=== PATIENT | female | born 1970 | race Caucasian/White ===

== ENCOUNTER 2019-01-03 07:42 | Day surgery (SDC) | payer BC ==
[~2019-01-03 07:42] MED LIST: Clindamycin Phosphate in D5W 600 MG in Premix Bag 50 BAG IV ONE; Lactated Ringers 1,000 ML IV SCH; Sodium Chloride 0.9% 10 ML Syringe FLUSH PRN; Sodium Chloride 0.9% 2.5 ML Syringe FLUSH PRN
[2019-01-03] MEDS ORDERED: Midazolam 1 MG/ML 2 ML SDV ONE (08:30)
[2019-01-03] MEDS ORDERED: fentaNYL 250 MCG/5 ML SDV ONE (08:30)
[2019-01-03] MEDS ORDERED: Propofol 200 MG/20 ML SDV ONE ×2 (08:30→10:38)
[2019-01-03] MEDS ORDERED: Scopolamine 1.5 MG Transdermal Patch TRDERM PRN (08:38)
[2019-01-03] MEDS ORDERED: fentaNYL 100 MCG/2 ML SDV IVPUSH PRN ×2 (08:39→10:31)
--- NOTE | 2019-01-03 08:41 | PCM.PREANE ---
Preanesthetic Assessment - Anesthesia/Transfusion/Family Hx Anesthesia History: Prior Anesthesia Without Reaction Family History of Anesthesia Reaction: No Transfusion History: No Prior Transfusion(s) - Review of Systems General: No Symptoms Pulmonary: No Symptoms Cardiovascular: No Symptoms Gastrointestinal: No Symptoms Neurological: Headache Other: Reports: None - Physical Assessment NPO Status Date: 12/19/18 Height: 5 ft 6 in Weight: 76.657 kg ASA Class: 2 Mental Status: Alert & Oriented x3 Airway Class: Mallampati = 2 Dentition: Reports: Normal Dentition ROM/Head Extension: Full Lungs: Clear to Auscultation, Normal Respiratory Effort Cardiovascular: Regular Rate, Regular Rhythm - Lab Values: Laboratory Last Values Urine HCG, Qual NEGATIVE (NEGATIVE) 01/03/19 08:12 - Allergies Allergies/Adverse Reactions: Allergies Allergy/AdvReac Type Severity Reaction Status Date / Time amoxicillin Allergy Hives Verified 01/01/19 08:44 Sulfa (Sulfonamide Allergy Hives Verified 01/01/19 08:44 Antibiotics) - Anesthesia Plan Pre-Op Medication Ordered: Other (fentanyl for headache, and scop patch for PONV prophylaxis) - Acknowledgements Anesthesia Type Planned: General Anesthesia Pt an Appropriate Candidate for the Planned Anesthesia: Yes Alternatives and Risks of Anesthesia Discussed w Pt/Guardian: Yes Pt/Guardian Understands and Agrees with Anesthesia Plan: Yes PreAnesthesia Questionnaire HEENT History: Reports: Other (See Below) Other HEENT History: wears glasses/contacts Gastrointestinal History: Reports: None - Past Surgical History Head Surgeries/Procedures: Reports: None GI Surgical History: Reports: Bariatric Procedure Other GI Surgeries/Procedures: lap band surgery in 2006 - SUBSTANCE USE Smoking Status *Q: Current Every Day Smoker Tobacco Use Within Last Twelve Months: Cigarettes Recreational Drug Use History: No - HOME MEDS Home Medications: Home Meds Acetaminophen with Codeine [Tylenol with Codeine #3 Tablet] 1 tab PO ASDIRECTED PRN 01/01/19 [History] Levomilnacipran Hydrochloride [Fetzima] 40 mg PO DAILY 01/01/19 [History] Multivitamin [Multivitamins] 1 tab PO DAILY 01/01/19 [History] - CURRENT (IN HOUSE) MEDS Current Meds: Current Medications Fentanyl (Sublimaze) 50 mcg IVPUSH Q5M PRN PRN Reason: Pain Lactated Ringer's (Ringers, Lactated) 1,000 mls @ 125 mls/hr IV ASDIRECTED FILI Scopolamine (Transderm-Scop) 1.5 mg TRDERM Q72H PRN PRN Reason: Nausea/Vomiting Sodium Chloride (Saline Flush) 10 ml FLUSH ASDIRECTED PRN PRN Reason: Keep Vein Open Sodium Chloride (Saline Flush) 2.5 ml FLUSH ASDIRECTED PRN PRN Reason: Keep Vein Open Discontinued Medications Fentanyl (Sublimaze) Confirm Administered Dose 250 mcg .ROUTE .STK-MED ONE Stop: 01/03/19 08:31 Clindamycin Phosphate 600 mg/ (Premix) 50 mls @ 100 mls/hr IV ONETIME ONE Stop: 01/02/19 11:10 Midazolam HCl (Versed 1 Mg/Ml) Confirm Administered Dose 2 mg .ROUTE .STK-MED ONE Stop: 01/03/19 08:31 Propofol (Diprivan 20 Ml) Confirm Administered Dose 200 mg .ROUTE .STK-MED ONE Stop: 01/03/19 08:31
[2019-01-03] MEDS ORDERED: Bupivacaine 0.5% 30 ML SDV ONE (09:18)
[2019-01-03] MEDS ORDERED: Clindamycin Phosphate in D5W 50 ML ONE (09:26)
--- NOTE | 2019-01-03 09:31 | PCM.POSTAN ---
POST ANESTHESIA ASSESSMENT - MENTAL STATUS Mental Status: Alert, Oriented - RESPIRATORY Respiratory Status: Respiratory Rate WNL, Airway Patent, O2 Saturation Stable - CARDIOVASCULAR CV Status: Pulse Rate WNL, Blood Pressure Stable - GASTROINTESTINAL GI Status: No Symptoms - POST OP HYDRATION Hydration Status: Adequate & Stable
[2019-01-03] MEDS ORDERED: Phenylephrine/Normal Saline 100 MCG/ML 10 ML Syringe ONE (10:27)
[2019-01-03] MEDS ORDERED: Neostigmine Methylsulfate 1 MG/ML 5 ML Syringe ONE (10:27)
[2019-01-03] MEDS ORDERED: Glycopyrrolate 0.2 MG/ML SDV ONE (10:27)
[2019-01-03] MEDS ORDERED: ePHEDrine 50 MG/ML SDV ONE (10:27)
[2019-01-03] MEDS ORDERED: HYDROmorphone 2 MG/ML Syringe IVPUSH ONE (10:31)
--- NOTE | 2019-01-03 10:48 | PCM.OPNOTE ---
- General Post-Op/Procedure Note Date of Surgery/Procedure: 01/03/19 Operative Procedure(s): Laparoscopic cholecystectomy Findings: Normal appearing gallbladder Pre Op Diagnosis: Biliary dyskinesia Post-Op Diagnosis: same Anesthesia Technique: General ET Tube Primary Surgeon: Mabel Andrew Fluid Replacement, Intraop: 1,200 Output, Urine Amount: 100 EBL in mLs: 5 Condition: Good
--- NOTE | 2019-01-03 11:01 | PCM.POSTAN ---
POST ANESTHESIA ASSESSMENT - MENTAL STATUS Mental Status: Alert, Oriented - RESPIRATORY Respiratory Status: Respiratory Rate WNL, Airway Patent, O2 Saturation Stable - CARDIOVASCULAR CV Status: Pulse Rate WNL, Blood Pressure Stable - GASTROINTESTINAL GI Status: No Symptoms - PAIN Pain Score: 0 - POST OP HYDRATION Hydration Status: Adequate & Stable - OBSERVATIONS Free Text/Narrative:: Pt denies any pain or nausea at this time. No apparent anesthesia complications. VSS. Stable for tx to phase II recovery.
[2019-01-03] MEDS ORDERED: Acetaminophen/oxyCODONE 325-5 MG Tab PO PRN (11:45)
--- NOTE | 2019-01-03 12:46 | PCM48HPAN ---
Post Anesthesia Note - EVALUATION WITHIN 48HRS OF ANESTHETIC Vital Signs in Normal Range: Yes Patient Participated in Evaluation: Yes Respiratory Function Stable: Yes Airway Patent: Yes Cardiovascular Function Stable: Yes Hydration Status Stable: Yes Pain Control Satisfactory: Yes Nausea and Vomiting Control Satisfactory: Yes Mental Status Recovered: Yes Resp Rate: 14
--- NOTE | 2019-01-03 13:48 | OR ---
SURGEON: LINDA HINOJOSA MD DATE OF PROCEDURE: 01/03/2019 PREOPERATIVE DIAGNOSIS: Biliary dyskinesia. POSTOPERATIVE DIAGNOSIS: Biliary dyskinesia. PROCEDURE PERFORMED: Laparoscopic cholecystectomy. ANESTHESIA: General endotracheal anesthesia. FLUIDS: 1200 mL of crystalloid. ESTIMATED BLOOD LOSS: 5 mL. URINE OUTPUT: 100 mL. FINDINGS: Normal-appearing gallbladder. COMPLICATIONS: None. INDICATIONS: The patient is a 48-year-old female who presents with right upper quadrant abdominal pain. A HIDA scan showed an ejection fraction of 5% indicating biliary dyskinesia. I explained the Pathophysiology of biliary disease. I explained that the treatment for biliary dyskinesia is removal of the gallbladder. I will attempt it laparoscopically, but should I be unable to perform it safely, I will convert it to open. The patient and I discussed the expected perioperative course as well as the risks including bleeding, infection, or damage to surrounding structures. The patient verbalized understanding and wishes to proceed. PROCEDURE IN DETAIL: The patient was brought into the OR and placed on the OR table in supine position. A time-out was completed verifying the patient's name, age, date of , allergies, and procedure to be performed. General endotracheal anesthesia was induced. The left arm was tucked at the patient's side and a Cornejo catheter was placed. The abdomen was prepped and draped in usual standard fashion. I anesthetized the area underneath the patient's umbilicus with 0.5% Marcaine plain. A small infraumbilical midline incision was made using an 11 blade. Cautery was used to dissect down the level of subcutaneous fat. I bluntly dissected down to the level of fascia using S retractors. I then elevated the fascia with Karlos's and incised it sharply with the Bueno scissors. I identified the peritoneum and entered this bluntly with a small hemostat. Entry into the abdomen was palpated. A 12 mm Osmel trocar was inserted. The abdomen was insufflated and I inserted a 5 mm 30-degree scope into the abdomen and inspected the area underneath my initial trocar placement. No damage to surrounding structures was noted. The patient was placed into reverse Trendelenburg position and airplaned slightly to the left. I immediately noticed the patient's laparoscopic band and the tubing going to the subcutaneous port. The tubing was laying along the left side of the abdomen and was well out of my way. A photograph of the lap band was taken. I then turned my attention to the right upper quadrant. 5 mm trocars were placed under direct visualization in the following locations, one in the epigastric area, one in the right flank, and one 2 fingerbreadths below the right subcostal margin in the midclavicular line. The dome of the gallbladder was grasped and elevated cranially. This exposed the infundibulum. There were no signs of inflammation, and there were no intraabdominal adhesions. Using a combination of hook cautery and gentle blunt dissection, I was able to clear away the peritoneal attachments around the cystic duct and artery. Once I had obtained my critical view, I doubly clipped and ligated the cystic duct and artery. Electrocautery was used to take down the attachments of the gallbladder from the remainder of the cystic plate. Once this was done, the gallbladder was placed in an EndoCatch bag and removed through the infraumbilical port site. The 12 mm Osmel trocar was placed back in the abdomen and I inspected my operative field. The clips were in good position. There was no evidence of bile leakage. The field was hemostatic. The 5 mm trocars were removed under direct visualization and the abdomen allowed to desufflate. The 12-mm Osmel trocar was removed as well. I closed the infraumbilical fascia with interrupted 0 Vicryl sutures. The subcutaneous fat was closed with interrupted 3-0 Vicryl sutures. The skin was then closed with a running 4-0 Monocryl stitch. The 5 mm trocar sites were closed with interrupted 4-0 Monocryl. Steri-Strips and sterile dressings were applied. All counts were complete and correct at the end of the case. The patient tolerated the procedure well, was extubated and taken to PACU in stable condition. KIMBERLY DE LEON /[id number]
== END 2019-01-03 13:30 | disposition home or self-care (01) ==
LOC: MW.SDS 07:42
PROVIDERS: ATTEND Surgery
DX: K81.1 Chronic cholecystitis (principal); K82.8 Other specified diseases of gallbladder; F17.210 Nicotine dependence, cigarettes, uncomplicated; Z79.899 Other long term (current) drug therapy; Z88.0 Allergy status to penicillin; Z88.1 Allergy status to other antibiotic agents; Z88.2 Allergy status to sulfonamides
CPT/HCPCS: 47562; 81025; A9270; J1170; J2250; J2370; J2704; J3010; J3490; J7120

== ENCOUNTER 2019-01-07 03:44 | Observation (INO) | payer BC ==
[2019-01-07] MEDS ORDERED: Sodium Chloride 0.9% 1,000 ML IV ONE (03:57)
[2019-01-07] MEDS ORDERED: HYDROmorphone 1 MG/ML Syringe IVPUSH ONE ×2 (04:01→05:45)
[2019-01-07] MEDS ORDERED: Ondansetron 4 MG/2 ML SDV IVPUSH ONE (04:01)
--- NOTE | 2019-01-07 04:03 | EDM.PDOC ---
ED HPI GENERAL MEDICAL PROBLEM - General Chief Complaint: Abdominal Pain Stated Complaint: ABDOMINAL PAIN- RECENT GALL BLADDER SURGERY Time Seen by Provider: 01/07/19 03:52 - History of Present Illness INITIAL COMMENTS - FREE TEXT/NARRATIVE: HISTORY AND PHYSICAL: History of present illness: Patient's 48-year-old female who is status post cholecystectomy last presents with concern of right-sided abdominal pain she states is seemingly somewhat different in character from the postoperative pain she had initially. No fever chills nausea vomiting she denies trauma Review of systems: As per history of present illness and below otherwise all systems reviewed and negative. Past medical history: As per history of present illness and as reviewed below otherwise noncontributory. Surgical history: As per history of present illness and as reviewed below otherwise noncontributory. Social history: No reported history of drug or alcohol abuse. Family history: As per history of present illness and as reviewed below otherwise noncontributory. Physical exam: HEENT: Atraumatic, normocephalic, pupils reactive, negative for conjunctival pallor or scleral icterus, mucous membranes moist, throat clear, neck supple, nontender, trachea midline. Lungs: Clear to auscultation, breath sounds equal bilaterally, chest nontender. Heart: S1S2, regular, negative for clicks, rubs, or JVD. Abdomen: Soft, nondistended, right-sided incisional tenderness noted no rebound no guarding. Negative for masses or hepatosplenomegaly. Negative for costovertebral tenderness. Pelvis: Stable nontender. Genitourinary: Deferred. Rectal: Deferred. Extremities: Atraumatic, negative for cords or calf pain. Neurovascular unremarkable. Neuro: Awake, alert, oriented. Cranial nerves II through XII unremarkable. Cerebellum unremarkable. Motor and sensory unremarkable throughout. Exam nonfocal. Diagnostics: CBC CMP and lipase UA chest x-ray CT abdomen and pelvis with IV contrast Therapeutics: Saline 1 L bolus Dilaudid 1 mg IV Zofran 4 mg IV Impression: #1 postoperative abdominal pain #2 history of recent cholecystectomy Definitive disposition and diagnosis as appropriate pending reevaluation and review of above. Right Upper abd pain Pain Score (Numeric/FACES): 8 - Related Data Allergies Allergy/AdvReac Type Severity Reaction Status Date / Time amoxicillin Allergy Hives Verified 01/07/19 03:51 Sulfa (Sulfonamide Allergy Hives Verified 01/07/19 03:51 Antibiotics) Home Meds: Home Meds Levomilnacipran Hydrochloride [Fetzima] 40 mg PO DAILY 01/01/19 [History] Multivitamin [Multivitamins] 1 tab PO DAILY 01/01/19 [History] Past Medical History HEENT History: Reports: Other (See Below) Other HEENT History: wears glasses/contacts Gastrointestinal History: Reports: None - Past Surgical History Head Surgeries/Procedures: Reports: None GI Surgical History: Reports: Bariatric Procedure, Cholecystectomy Other GI Surgeries/Procedures: lap band surgery in 2006 Social & Family History - Tobacco Use Smoking Status *Q: Current Every Day Smoker Years of Tobacco use: 30 Packs/Tins Daily: 0.4 - Caffeine Use Caffeine Use: Reports: Coffee - Recreational Drug Use Recreational Drug Use: No ED ROS GENERAL - Review of Systems Review Of Systems: ROS reveals no pertinent complaints other than HPI. ED EXAM, GENERAL - Physical Exam Exam: See Below (See dictation) Course - Vital Signs Last Recorded V/S: Last Vital Signs Temp 35.9 C 01/07/19 06:02 Pulse 74 01/07/19 06:02 Resp 18 01/07/19 06:02 BP 148/81 H 01/07/19 06:02 Pulse Ox 98 01/07/19 06:02 - Orders/Labs/Meds Labs: Laboratory Tests 01/07/19 01/07/19 01/07/19 Range/Units 04:05 04:05 05:50 WBC 10.28 (4.0-11.0) K/uL RBC 4.61 (4.30-5.90) M/uL Hgb 14.9 (12.0-16.0) g/dL Hct 42.8 (36.0-46.0) % MCV 92.8 (80.0-98.0) fL MCH 32.3 H (27.0-32.0) pg MCHC 34.8 (31.0-37.0) g/dL RDW Std Deviation 43.5 (28.0-62.0) fl RDW Coeff of Bon 13 (11.0-15.0) % Plt Count 274 (150-400) K/uL MPV 9.70 (7.40-12.00) fL Neut % (Auto) 70.4 (48.0-80.0) % Lymph % (Auto) 18.2 (16.0-40.0) % [place] % (Auto) 7.4 (0.0-15.0) % Eos % (Auto) 3.6 (0.0-7.0) % Baso % (Auto) 0.4 (0.0-1.5) % Neut # (Auto) 7.2 H (1.4-5.7) K/uL Lymph # (Auto) 1.9 (0.6-2.4) K/uL [place] # (Auto) 0.8 (0.0-0.8) K/uL Eos # (Auto) 0.4 (0.0-0.7) K/uL Baso # (Auto) 0.0 (0.0-0.1) K/uL Nucleated RBC % 0.0 /100WBC Nucleated RBCs # 0 K/uL Sodium 136 (136-145) mmol/L Potassium 4.0 (3.5-5.1) mmol/L Chloride 100 (98-107) mmol/L Carbon Dioxide 26.7 (21.0-32.0) mmol/L BUN 15 (7.0-18.0) mg/dL Creatinine 0.8 (0.6-1.0) mg/dL Est Cr Clr Drug Dosing 80.51 mL/min Estimated GFR (MDRD) > 60.0 ml/min Glucose 142 H (74-106) mg/dL Calcium 9.5 (8.5-10.1) mg/dL Total Bilirubin 0.5 (0.2-1.0) mg/dL AST 20 (15-37) IU/L ALT 32 (14-63) IU/L Alkaline Phosphatase 75 (46-116) U/L Total Protein 7.0 (6.4-8.2) g/dL Albumin 3.7 (3.4-5.0) g/dL Globulin 3.3 (2.6-4.0) g/dL Albumin/Globulin Ratio 1.1 (0.9-1.6) Lipase 87 (73-393) U/L Urine Color YELLOW Urine Appearance SLT CLOUDY Urine pH 5.0 (5.0-8.0) Ur Specific [place] 1.010 (1.001-1.035) Urine Protein NEGATIVE (NEGATIVE) mg/dL Urine Glucose (UA) NEGATIVE (NEGATIVE) mg/dL Urine Ketones 15 H (NEGATIVE) mg/dL Urine Occult Blood TRACE-INTACT H (NEGATIVE) Urine Nitrite NEGATIVE (NEGATIVE) Urine Bilirubin NEGATIVE (NEGATIVE) Urine Urobilinogen 0.2 (<2.0) EU/dL Ur Leukocyte Esterase NEGATIVE (NEGATIVE) Urine RBC 0-2 (0-2/HPF) Urine WBC 0-1 (0-5/HPF) Ur Epithelial Cells RARE (NONE-FEW) Urine Bacteria RARE (NEGATIVE) Meds: Medications Discontinued Medications Generic Name Dose Route Start Last Admin Trade Name Freq PRN Reason Stop Dose Admin Hydromorphone HCl 1 mg 01/07/19 04:01 01/07/19 04:16 Dilaudid IVPUSH 01/07/19 04:02 1 mg ONETIME ONE Administration Hydromorphone HCl 1 mg 01/07/19 05:45 01/07/19 05:59 Dilaudid IVPUSH 01/07/19 05:46 1 mg ONETIME ONE Administration Sodium Chloride 1,000 mls @ 999 mls/hr 01/07/19 03:57 01/07/19 04:13 Normal Saline IV 01/07/19 04:57 999 mls/hr STAT ONE Administration Iopamidol 100 ml 01/07/19 05:10 Isovue-370 (76%) IVPUSH 01/07/19 05:11 ONETIME ONE Ondansetron HCl 4 mg 01/07/19 04:01 01/07/19 04:14 Zofran IVPUSH 01/07/19 04:02 4 mg ONETIME ONE Administration Departure - Departure Time of Disposition: 07:12 Disposition: Refer to Observation Condition: Good Clinical Impression: Postoperative pain - Discharge Information Referrals: Patricia Horn DO [Primary Care Provider] - Forms: ED Department Discharge
[2019-01-07 04:30] LABS: CHLORIDE,CL 100 mmol/L (98-107); SODIUM,NA 136 mmol/L (136-145)
[2019-01-07] MEDS ORDERED: Iopamidol 755 Mg/ML 100 ML Bottle IVPUSH ONE (05:10)
--- NOTE | 2019-01-07 05:20 | CR ---
Indication: Chest pain Technique: Chest 1 view Comparison: May 11, 2013 Findings/Impression: Cardiovascular and mediastinum: Heart size and vasculature are normal in caliber and appearance. Mediastinum is within normal limits. Lungs and pleural space: Subcentimeter calcified granuloma right lower lobe. Lungs are otherwise clear. No sign of infiltrate or mass. No sign of pleural effusion. No pneumothorax. Bones and soft tissues: No significant findings. Dictated by Muna Escalante MD @ Jan 07 2019 5:17AM Signed by Dr. Muna Escalante @ Jan 07 2019 5:18AM
--- NOTE | 2019-01-07 05:26 | CT ---
INDICATION: Pain, nausea and vomiting TECHNIQUE: CT abdomen and pelvis acquired with 100 cc Isovue 370 IV contrast. COMPARISON: December 11, 2018 FINDINGS: Lower chest: Unremarkable. Liver: Unremarkable. Spleen: Unremarkable. Pancreas: Unremarkable. Gallbladder and bile ducts: S/p cholecystectomy. Small amount of fluid in the gallbladder bed and in the hepatorenal space. Small amount of fluid tracks down the right pericolic gutter. There is also a small amount of fluid in the pelvis. Adrenal glands: Unremarkable. Kidneys: Unremarkable. GI tract: Status post lap band placement. Appendix is not seen. Vascular structures: Unremarkable. Lymph nodes: Unremarkable. Miscellaneous: Small amount of postoperative pneumoperitoneum. Pelvic Organs: 2.1 cm cyst in the left adnexa. Bones: Unremarkable for age. IMPRESSION: Status post cholecystectomy with small amount of postoperative pneumoperitoneum. There is a small amount of fluid in the gallbladder bed extending into the hepatorenal space and right pericolic gutter. This could represent hematoma or bile leak. Recommend surgical consultation. Status post lap band placement. Cystic lesion in the left adnexa likely represents a physiologic ovarian cyst. Please note that all CT scans at this facility use dose modulation, iterative reconstruction, and/or weight-based dosing when appropriate to reduce radiation dose to as low as reasonably achievable. Dictated by Muna Escalante MD @ Jan 07 2019 5:18AM Signed by Dr. Muna Escalante @ Jan 07 2019 5:26AM
[2019-01-07] MEDS ORDERED: Promethazine 25 MG/ML SDV IM PRN (08:17)
[2019-01-07] MEDS ORDERED: Sodium Chloride 0.9% 10 ML Syringe FLUSH PRN (08:17)
[2019-01-07] MEDS ORDERED: Sodium Chloride 0.9% 2.5 ML Syringe FLUSH PRN (08:17)
[2019-01-07] MEDS ORDERED: HYDROmorphone 2 MG/ML SDV IVPUSH PRN (08:17)
[2019-01-07] MEDS ORDERED: Lactated Ringers 1,000 ML IV SCH (08:30)
[2019-01-07] MEDS ORDERED: Scopolamine 1.5 MG Transdermal Patch TRDERM SCH (08:30)
[2019-01-07] MEDS ORDERED: Acetaminophen 1,000 MG in Premix Bag 1 BAG IV ONE (08:39)
[2019-01-07] MEDS: HYDROmorphone 1 MG/ML Syringe IVPUSH PRN ×4 (08:41→16:44)
--- NOTE | 2019-01-07 08:42 | PCM.HP ---
H&P History of Present Illness - General Date of Service: 01/07/19 Admit Problem/Dx: Admission Diagnosis/Problem Admission Diagnosis/Problem Abdominal pain Source of Information: Patient History Limitations: Reports: No Limitations - History of Present Illness Initial Comments - Free Text/Narative: Patient is a 48 year old female who presents with RUQ pain s/p laparoscopic cholecystectomy for biliary dyskinesia. It was an uncomplicated case and she went home the same day. She has been having increase RUQ pain that radiates to her umbilicus and right lower side. She denies fever, chills, nausea or vomiting. She has been having pain since surgery and has been trying to wean herself off percocet. She was slightly hypertensive in the ER. Labs were normal. CT of the abdomen pelvis shows a small amount of fluid in the gallbladder fossa with some extension down the paracolic gutter into the pelvis concerning for hematoma or bile leak. Right Upper abd pain Pain Score (Numeric/FACES): 8 - Related Data Allergies/Adverse Reactions: Allergies Allergy/AdvReac Type Severity Reaction Status Date / Time amoxicillin Allergy Hives Verified 01/07/19 03:51 Sulfa (Sulfonamide Allergy Hives Verified 01/07/19 03:51 Antibiotics) Home Medications: Home Meds Levomilnacipran Hydrochloride [Fetzima] 40 mg PO DAILY 01/01/19 [History] Multivitamin [Multivitamins] 1 tab PO DAILY 01/01/19 [History] Past Medical History HEENT History: Reports: Other (See Below) Other HEENT History: wears glasses/contacts Gastrointestinal History: Reports: None - Past Surgical History Head Surgeries/Procedures: Reports: None GI Surgical History: Reports: Bariatric Procedure, Cholecystectomy Other GI Surgeries/Procedures: lap band surgery in 2006 Social & Family History - Tobacco Use Smoking Status *Q: Current Every Day Smoker Years of Tobacco use: 30 Packs/Tins Daily: 0.4 - Caffeine Use Caffeine Use: Reports: Coffee - Recreational Drug Use Recreational Drug Use: No H&P Review of Systems - Review of Systems: Review Of Systems: ROS reveals no pertinent complaints other than HPI. Exam - Exam Exam: See Below - Vital Signs Vital Signs: Last Vital Signs Temp 36.1 C 01/07/19 08:08 Pulse 81 01/07/19 08:08 Resp 17 01/07/19 08:08 BP 134/85 01/07/19 08:08 Pulse Ox 983 H 01/07/19 08:08 Weight: 76.657 kg - Exam Quality Assessment: Supplemental Oxygen General: Alert, Oriented, Moderate Distress HEENT: Conjunctiva Clear, Mucosa Moist & [place], Posterior Pharynx Clear Neck: Supple Lungs: Clear to Auscultation, Normal Respiratory Effort Cardiovascular: Regular Rate, Regular Rhythm GI/Abdominal Exam: Soft, Non-Tender, No Distention, No Mass. No: Guarding, Rigid, Rebound - Patient Data Lab Results Last 24 hrs: Laboratory Results - last 24 hr 01/07/19 01/07/19 01/07/19 Range/Units 04:05 04:05 05:50 WBC 10.28 (4.0-11.0) K/uL RBC 4.61 (4.30-5.90) M/uL Hgb 14.9 (12.0-16.0) g/dL Hct 42.8 (36.0-46.0) % MCV 92.8 (80.0-98.0) fL MCH 32.3 H (27.0-32.0) pg MCHC 34.8 (31.0-37.0) g/dL RDW Std Deviation 43.5 (28.0-62.0) fl RDW Coeff of Bon 13 (11.0-15.0) % Plt Count 274 (150-400) K/uL MPV 9.70 (7.40-12.00) fL Neut % (Auto) 70.4 (48.0-80.0) % Lymph % (Auto) 18.2 (16.0-40.0) % [place] % (Auto) 7.4 (0.0-15.0) % Eos % (Auto) 3.6 (0.0-7.0) % Baso % (Auto) 0.4 (0.0-1.5) % Neut # (Auto) 7.2 H (1.4-5.7) K/uL Lymph # (Auto) 1.9 (0.6-2.4) K/uL [place] # (Auto) 0.8 (0.0-0.8) K/uL Eos # (Auto) 0.4 (0.0-0.7) K/uL Baso # (Auto) 0.0 (0.0-0.1) K/uL Nucleated RBC % 0.0 /100WBC Nucleated RBCs # 0 K/uL Sodium 136 (136-145) mmol/L Potassium 4.0 (3.5-5.1) mmol/L Chloride 100 (98-107) mmol/L Carbon Dioxide 26.7 (21.0-32.0) mmol/L BUN 15 (7.0-18.0) mg/dL Creatinine 0.8 (0.6-1.0) mg/dL Est Cr Clr Drug Dosing 80.51 mL/min Estimated GFR (MDRD) > 60.0 ml/min Glucose 142 H (74-106) mg/dL Calcium 9.5 (8.5-10.1) mg/dL Total Bilirubin 0.5 (0.2-1.0) mg/dL AST 20 (15-37) IU/L ALT 32 (14-63) IU/L Alkaline Phosphatase 75 (46-116) U/L Total Protein 7.0 (6.4-8.2) g/dL Albumin 3.7 (3.4-5.0) g/dL Globulin 3.3 (2.6-4.0) g/dL Albumin/Globulin Ratio 1.1 (0.9-1.6) Lipase 87 (73-393) U/L Urine Color YELLOW Urine Appearance SLT CLOUDY Urine pH 5.0 (5.0-8.0) Ur Specific [place] 1.010 (1.001-1.035) Urine Protein NEGATIVE (NEGATIVE) mg/dL Urine Glucose (UA) NEGATIVE (NEGATIVE) mg/dL Urine Ketones 15 H (NEGATIVE) mg/dL Urine Occult Blood TRACE-INTACT H (NEGATIVE) Urine Nitrite NEGATIVE (NEGATIVE) Urine Bilirubin NEGATIVE (NEGATIVE) Urine Urobilinogen 0.2 (<2.0) EU/dL Ur Leukocyte Esterase NEGATIVE (NEGATIVE) Urine RBC 0-2 (0-2/HPF) Urine WBC 0-1 (0-5/HPF) Ur Epithelial Cells RARE (NONE-FEW) Urine Bacteria RARE (NEGATIVE) Result Diagrams: 01/07/19 04:05 01/07/19 04:05 - Problem List (1) Postoperative pain SNOMED Code(s): 626673517 ICD Code: G89.18 - OTHER ACUTE POSTPROCEDURAL PAIN Status: Acute Current Visit: Yes Problem List Initiated/Reviewed/Updated: Yes Orders Last 24hrs: Active Orders 24 hr Category Date Time Status Patient Status [ADT] Routine ADT 01/07/19 08:17 Active Intake and Output [RC] Q4HR Care 01/07/19 08:18 Active Oxygen Therapy [RC] PRN Care 01/07/19 08:17 Active Up ad Ida [RC] ASDIRECTED Care 01/07/19 08:17 Active Vital Signs [RC] PER UNIT ROUTINE Care 01/07/19 08:17 Active Nothing Per Oral Diet [DIET] Diet 01/07/19 Breakfast Active HIDA with EF [Cholescintigraphy w Pharm Int] [NM] Exams 01/07/19 08:38 Ordered Urgent CBC W/O DIFF,HEMOGRAM [HEME] AM Lab 01/08/19 05:11 Ordered COMPREHENSIVE METABOLIC PN,CMP [CHEM] AM Lab 01/08/19 05:11 Ordered Acetaminophen [Ofirmev] 1,000 mg Med 01/07/19 08:39 Ordered Premix Bag 1 bag IV NOW HYDROmorphone [Dilaudid] Med 01/07/19 08:35 Active 0.5 mg IVPUSH Q1H PRN Lactated Ringers [Ringers, Lactated] 1,000 ml Med 01/07/19 08:30 Active IV ASDIRECTED Promethazine [Phenergan] Med 01/07/19 08:17 Active 25 mg IM Q6H PRN Scopolamine [Transderm-Scop] Med 01/07/19 08:30 Active 1.5 mg TRDERM Q72H Sodium Chloride 0.9% [Saline Flush] Med 01/07/19 08:17 Active 10 ml FLUSH ASDIRECTED PRN Sodium Chloride 0.9% [Saline Flush] Med 01/07/19 08:17 Active 2.5 ml FLUSH ASDIRECTED PRN Peripheral IV Insertion Adult [OM.PC] Urgent Oth 01/07/19 08:17 Ordered Resuscitation Status Routine Resus Stat 01/07/19 08:17 Ordered Medication Orders Hydromorphone HCl (Dilaudid) 0.5 mg IVPUSH Q1H PRN PRN Reason: Pain (severe 7-10) Lactated Ringer's (Ringers, Lactated) 1,000 mls @ 125 mls/hr IV ASDIRECTED FILI Acetaminophen 1,000 mg/ Premix 100 mls @ 400 mls/hr IV NOW ONE Stop: 01/07/19 08:53 Promethazine HCl (Phenergan) 25 mg IM Q6H PRN PRN Reason: Nausea Scopolamine (Transderm-Scop) 1.5 mg TRDERM Q72H FILI Sodium Chloride (Saline Flush) 10 ml FLUSH ASDIRECTED PRN PRN Reason: Keep Vein Open Sodium Chloride (Saline Flush) 2.5 ml FLUSH ASDIRECTED PRN PRN Reason: Keep Vein Open Assessment/Plan Comment:: Will obtain a HIDA scan this afternoon to rule out a bile leak. If a bile leak is present will transfer for ERCP. If negative will work on pain control measures. For now will order IV tylenol and IV dilaudid as needed for pain. Needs to be NPO. IVF: LR @125ml/hr.
--- NOTE | 2019-01-07 14:32 | NM ---
EXAMINATION: Hepatobiliary scan HISTORY: Rule out bile leak COMPARISON: CT dated 01/07/2019 TECHNIQUE: AP and right lateral decubitus dynamic imaging obtained following the administration of 3.5 mCi technetium 99m labeled the diaphragm. FINDINGS: On initial hepatic phase there is a wedge-shaped photopenic area, there is however no focal hepatic abnormality noted on the prior CT. There is a perihepatic fluid collection noted, this may attenuate signal. There is excretion into the common bile duct and small bowel. However there is subtle passage of radiotracer into the gallbladder fossa and along the right peritoneal reflection. Right lateral decubitus imaging demonstrates activity above the liver. IMPRESSION: Small bile leak is noted.
--- NOTE | 2019-01-07 15:27 | PCM.DCSUM1 ---
Discharge Summary - Hospital Course Free Text/Narrative:: Patient is a 48 year old female who presents with RUQ abdominal pain. This has been increasing in severity and not improved with Percocet. She presented to the ER. Her vitals were stable. Her CMP and CBC were normal. A CT scan of the abdomen pelvis showed a small collection of fluid in the gallbladder fossa extending along the right pericolic gutter down to the pelvis. She was admitted for pain control and further workup. She was given IV Tylenol and Dilaudid with overall good control of her pain. She had a HIDA scan that showed a small amount of extravision into the gallbladder fossa. She was transferred to [place] for an ERCP with possible stent placement. - Discharge Data Discharge Date: 01/07/19 Discharge Disposition: Home, Self-Care 01 Condition: Stable - Discharge Diagnosis/Problem(s) (1) Postoperative pain SNOMED Code(s): 113561931 ICD Code: G89.18 - OTHER ACUTE POSTPROCEDURAL PAIN Status: Acute Current Visit: Yes - Discharge Plan *PRESCRIPTION DRUG MONITORING PROGRAM REVIEWED*: Not Applicable *COPY OF PRESCRIPTION DRUG MONITORING REPORT IN PATIENT AVA: Not Applicable Home Medications: Home Meds Levomilnacipran Hydrochloride [Fetzima] 40 mg PO DAILY 01/01/19 [History] Multivitamin [Multivitamins] 1 tab PO DAILY 01/01/19 [History] Forms: ED Department Discharge Referrals: Patricia Horn DO [Primary Care Provider] - - Discharge Summary/Plan Comment DC Time >30 min.: No - General Info Functional Status: Reports: Pain Controlled - Review of Systems General: Reports: No Symptoms HEENT: Reports: No Symptoms Pulmonary: Reports: No Symptoms Cardiovascular: Reports: No Symptoms Gastrointestinal: Reports: Abdominal Pain Genitourinary: Reports: No Symptoms Musculoskeletal: Reports: No Symptoms - Patient Data Vitals - Most Recent: Last Vital Signs Temp 36.4 C 01/07/19 12:00 Pulse 95 01/07/19 12:00 Resp 16 01/07/19 12:00 BP 137/84 01/07/19 12:00 Pulse Ox 99 01/07/19 12:00 Weight - Most Recent: 76.657 kg Lab Results - Last 24 hrs: Laboratory Results - last 24 hr 01/07/19 01/07/19 01/07/19 Range/Units 04:05 04:05 05:50 WBC 10.28 (4.0-11.0) K/uL RBC 4.61 (4.30-5.90) M/uL Hgb 14.9 (12.0-16.0) g/dL Hct 42.8 (36.0-46.0) % MCV 92.8 (80.0-98.0) fL MCH 32.3 H (27.0-32.0) pg MCHC 34.8 (31.0-37.0) g/dL RDW Std Deviation 43.5 (28.0-62.0) fl RDW Coeff of Bon 13 (11.0-15.0) % Plt Count 274 (150-400) K/uL MPV 9.70 (7.40-12.00) fL Neut % (Auto) 70.4 (48.0-80.0) % Lymph % (Auto) 18.2 (16.0-40.0) % [place] % (Auto) 7.4 (0.0-15.0) % Eos % (Auto) 3.6 (0.0-7.0) % Baso % (Auto) 0.4 (0.0-1.5) % Neut # (Auto) 7.2 H (1.4-5.7) K/uL Lymph # (Auto) 1.9 (0.6-2.4) K/uL [place] # (Auto) 0.8 (0.0-0.8) K/uL Eos # (Auto) 0.4 (0.0-0.7) K/uL Baso # (Auto) 0.0 (0.0-0.1) K/uL Nucleated RBC % 0.0 /100WBC Nucleated RBCs # 0 K/uL Sodium 136 (136-145) mmol/L Potassium 4.0 (3.5-5.1) mmol/L Chloride 100 (98-107) mmol/L Carbon Dioxide 26.7 (21.0-32.0) mmol/L BUN 15 (7.0-18.0) mg/dL Creatinine 0.8 (0.6-1.0) mg/dL Est Cr Clr Drug Dosing 80.51 mL/min Estimated GFR (MDRD) > 60.0 ml/min Glucose 142 H (74-106) mg/dL Calcium 9.5 (8.5-10.1) mg/dL Total Bilirubin 0.5 (0.2-1.0) mg/dL AST 20 (15-37) IU/L ALT 32 (14-63) IU/L Alkaline Phosphatase 75 (46-116) U/L Total Protein 7.0 (6.4-8.2) g/dL Albumin 3.7 (3.4-5.0) g/dL Globulin 3.3 (2.6-4.0) g/dL Albumin/Globulin Ratio 1.1 (0.9-1.6) Lipase 87 (73-393) U/L Urine Color YELLOW Urine Appearance SLT CLOUDY Urine pH 5.0 (5.0-8.0) Ur Specific [place] 1.010 (1.001-1.035) Urine Protein NEGATIVE (NEGATIVE) mg/dL Urine Glucose (UA) NEGATIVE (NEGATIVE) mg/dL Urine Ketones 15 H (NEGATIVE) mg/dL Urine Occult Blood TRACE-INTACT H (NEGATIVE) Urine Nitrite NEGATIVE (NEGATIVE) Urine Bilirubin NEGATIVE (NEGATIVE) Urine Urobilinogen 0.2 (<2.0) EU/dL Ur Leukocyte Esterase NEGATIVE (NEGATIVE) Urine RBC 0-2 (0-2/HPF) Urine WBC 0-1 (0-5/HPF) Ur Epithelial Cells RARE (NONE-FEW) Urine Bacteria RARE (NEGATIVE) Med Orders - Current: Current Medications Hydromorphone HCl (Dilaudid) 0.5 mg IVPUSH Q1H PRN PRN Reason: Pain (severe 7-10) Last Admin: 01/07/19 14:21 Dose: 0.5 mg Lactated Ringer's (Ringers, Lactated) 1,000 mls @ 125 mls/hr IV ASDIRECTED FILI Last Admin: 01/07/19 08:53 Dose: 125 mls/hr Promethazine HCl (Phenergan) 25 mg IM Q6H PRN PRN Reason: Nausea Scopolamine (Transderm-Scop) 1.5 mg TRDERM Q72H [facility] Last Admin: 01/07/19 08:42 Dose: 1.5 mg Sodium Chloride (Saline Flush) 10 ml FLUSH ASDIRECTED PRN PRN Reason: Keep Vein Open Sodium Chloride (Saline Flush) 2.5 ml FLUSH ASDIRECTED PRN PRN Reason: Keep Vein Open Discontinued Medications Hydromorphone HCl (Dilaudid) 1 mg IVPUSH ONETIME ONE Stop: 01/07/19 04:02 Last Admin: 01/07/19 04:16 Dose: 1 mg Hydromorphone HCl (Dilaudid) 1 mg IVPUSH ONETIME ONE Stop: 01/07/19 05:46 Last Admin: 01/07/19 05:59 Dose: 1 mg Hydromorphone HCl (Dilaudid) 0.5 mg IVPUSH Q1H PRN PRN Reason: Pain (severe 7-10) Sodium Chloride (Normal Saline) 1,000 mls @ 999 mls/hr IV STAT ONE Stop: 01/07/19 04:57 Last Admin: 01/07/19 04:13 Dose: 999 mls/hr Acetaminophen 1,000 mg/ Premix 100 mls @ 400 mls/hr IV NOW ONE Stop: 01/07/19 08:53 Last Admin: 01/07/19 08:53 Dose: 400 mls/hr Iopamidol (Isovue-370 (76%)) 100 ml IVPUSH ONETIME ONE Stop: 01/07/19 05:11 Last Admin: 01/07/19 08:07 Dose: Not Given Ondansetron HCl (Zofran) 4 mg IVPUSH ONETIME ONE Stop: 01/07/19 04:02 Last Admin: 01/07/19 04:14 Dose: 4 mg - Exam General: Reports: Alert, Oriented, Cooperative Lungs: Reports: Normal Respiratory Effort Cardiovascular: Reports: Regular Rate GI/Abdominal Exam: Soft, Non-Tender, No Distention, No Mass
== END 2019-01-07 17:00 | disposition home or self-care (01) ==
LOC: MW.ED 03:44 → MW.MS 07:13
PROVIDERS: ADMIT Surgery; ATTEND Surgery
DX: G89.18 Other acute postprocedural pain (principal); K82.8 Other specified diseases of gallbladder; F17.200 Nicotine dependence, unspecified, uncomplicated; Z88.0 Allergy status to penicillin; Z88.2 Allergy status to sulfonamides; Z90.49 Acquired absence of other specified parts of digestive tract; Z79.899 Other long term (current) drug therapy
CPT/HCPCS: 36415; 71045; 74177; 78226; 80053; 81001; 83690; 85025; 96361; 96374; 96375; 96376; 99285; A9270; A9537; G0378; J0131; J1170; J2405; J7040; J7120; 99284

== ENCOUNTER 2020-01-22 14:44 | Emergency (ER) | payer BC ==
--- NOTE | 2020-01-22 14:49 | EDM.PDOC ---
ED HPI GENERAL MEDICAL PROBLEM - General Chief Complaint: Lower Extremity Injury/Pain Stated Complaint: INJURED RT ANKLE Time Seen by Provider: 01/22/20 14:46 Source of Information: Reports: Patient History Limitations: Reports: No Limitations - History of Present Illness INITIAL COMMENTS - FREE TEXT/NARRATIVE: HISTORY AND PHYSICAL: History of present illness: Patient is a 49-year-old female who presents to the emergency room with complaints of right ankle and foot pain. She states earlier today her foot had fallen asleep and when she got up to ambulate she had tripped and fallen. She has pain to bilateral malleolus and across the top of her foot. There is some soft tissue swelling and early bruising noted. States she does not have pain unless she is ambulating. Review of systems: As per history of present illness and below otherwise all systems reviewed and negative. Past medical history: As per history of present illness and as reviewed below otherwise noncontributory. Surgical history: As per history of present illness and as reviewed below otherwise noncontributory. Social history: See social history for further information Family history: As per history of present illness and as reviewed below otherwise noncontributory. Physical exam: General: Well-developed and well-nourished 49-year-old female. Alert and oriented. Nontoxic-appearing and in no acute distress. HEENT: Atraumatic, normocephalic, pupils equal and reactive bilaterally, negative for conjunctival pallor or scleral icterus, mucous membranes moist, trachea midline. No drooling or trismus noted. No meningeal signs. No hot potato voice noted. Lungs: Clear to auscultation, breath sounds equal bilaterally. Heart: S1S2, regular rate and rhythm without overt murmur Abdomen: Soft, nondistended, nontender. Skin: Right-sided soft tissue swelling and early bruising noted to the lateral malleolus and across the top of the foot. Skin is intact, warm, dry. No lesions or rashes noted. Extremities: Medial and lateral malleolus tenderness to palpation on the right. Pain with palpation on the top of the mid right foot. She is able to bear weight and moves all extremities per self without difficulty or deficits, negative for cords or calf pain. Strong pedal and pretibial pulses. Neurovascular unremarkable. Neuro: Awake, alert, oriented. Cranial nerves II through XII unremarkable. Cerebellum unremarkable. Motor and sensory unremarkable throughout. Exam nonfocal. Notes: X-ray does show soft tissue swelling. No acute fractures noted. Patient does have her own ankle wrap/splint which she is comfortable using. I will give her crutches to be nonweightbearing over the next 2 to 3 days for comfort. Encouraged her to follow-up with an orthopedic provider. Medication and supportive care measures were reviewed and discussed. Voices understanding and is agreeable to plan of care. Denies any further questions or concerns at this time. Diagnostics: X-ray Therapeutics: Crutches Prescription: Tramadol (#15) Impression: Ankle injury, left Ankle sprain, left Plan: 1. Rest, ice, elevate the affected extremity. Please wear the splint as directed. 2. Tylenol and/or Ibuprofen as needed for pain management. 3. Follow up with the Orthopedic provider as we discussed. Return to the ED as needed and as discussed. Definitive disposition and diagnosis as appropriate pending reevaluation and review of above. - Related Data Allergies Allergy/AdvReac Type Severity Reaction Status Date / Time amoxicillin Allergy Hives Verified 01/22/20 15:04 Sulfa (Sulfonamide Allergy Hives Verified 01/22/20 15:04 Antibiotics) Home Meds: Home Meds Levomilnacipran Hydrochloride [Fetzima] 80 mg PO DAILY 01/01/19 [History] Multivitamin [Multivitamins] 1 tab PO DAILY 01/01/19 [History] traMADol [Ultram] 50 mg PO Q4H PRN #15 tab 01/22/20 [Rx] Past Medical History HEENT History: Reports: Other (See Below) Other HEENT History: wears glasses/contacts Gastrointestinal History: Reports: None - Past Surgical History Head Surgeries/Procedures: Reports: None GI Surgical History: Reports: Bariatric Procedure, Cholecystectomy Other GI Surgeries/Procedures: lap band surgery in 2006 Social & Family History - Family History Family Medical History: Noncontributory - Caffeine Use Caffeine Use: Reports: Coffee Review of Systems - Review of Systems Review Of Systems: Comprehensive ROS is negative, except as noted in HPI. ED EXAM, GENERAL - Physical Exam Exam: See Below (See dictation) Course - Vital Signs Last Recorded V/S: Last Vital Signs Temp 98.2 F 01/22/20 15:02 Pulse 87 01/22/20 15:02 Resp 18 01/22/20 15:02 BP 143/83 H 01/22/20 15:02 Pulse Ox 100 01/22/20 15:02 - Orders/Labs/Meds Orders: Active Orders 24 hr Category Date Time Status DME for Discharge [COMM] Stat Oth 01/22/20 16:01 Ordered Departure - Departure Time of Disposition: 16:08 Disposition: Home, Self-Care 01 Clinical Impression: Left ankle injury Qualifiers: Encounter type: initial encounter Qualified Code(s): S99.912A - Unspecified injury of left ankle, initial encounter Ankle sprain Qualifiers: Encounter type: initial encounter Involved ligament of ankle: unspecified ligament Laterality: left Qualified Code(s): S93.402A - Sprain of unspecified ligament of left ankle, initial encounter - Discharge Information Prescriptions: traMADol [Ultram] 50 mg PO Q4H PRN #15 tab PRN Reason: Pain Instructions: Ankle Sprain, [id number] Referrals: Patricia Horn DO [Primary Care Provider] - Forms: ED Department Discharge Additional Instructions: The following information is given to patients seen in the emergency department who are being discharged to home. This information is to outline your options for follow-up care. We provide all patients seen in our emergency department with a follow-up referral. The need for follow-up, as well as the timing and circumstances, are variable depending upon the specifics of your emergency department visit. If you don't have a primary care physician on staff, we will provide you with a referral. We always advise you to contact your personal physician following an emergency department visit to inform them of the circumstance of the visit and for follow-up with them and/or the need for any referrals to a consulting specialist. The emergency department will also refer you to a specialist when appropriate. This referral assures that you have the opportunity for follow-up care with a specialist. All of these measure are taken in an effort to provide you with optimal care, which includes your follow-up. Under all circumstances we always encourage you to contact your private physician who remains a resource for coordinating your care. When calling for follow-up care, please make the office aware that this follow-up is from your recent emergency room visit. If for any reason you are refused follow-up, please contact the [facility] Emergency Department at and asked to speak to the emergency department charge nurse. [facility] [address] [place] [address] [facility] [address] [place] [address] 1. Rest, ice, elevate the affected extremity. Please wear the your home ankle brace and crutches over the next 2-3 days as directed. 2. Tylenol and/or Ibuprofen as needed for pain management. 3. Follow up with the Orthopedic provider as we discussed. Return to the ED as needed and as discussed. Sepsis Event Note - Focused Exam Vital Signs: Vital Signs Temp Pulse Resp BP Pulse Ox 01/22/20 15:02 98.2 F 87 18 143/83 H 100 Date Exam was Performed: 01/22/20 Time Exam was Performed: 16:03 - My Orders Last 24 Hours: My Active Orders 01/22/20 16:01 DME for Discharge [COMM] Stat - Assessment/Plan Last 24 Hours: My Active Orders 01/22/20 16:01 DME for Discharge [COMM] Stat
--- NOTE | 2020-01-22 15:28 | CR ---
Right foot: 2 views of the right foot were obtained. Comparison: Prior right foot exam of 01/24/13. 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 Small calcification off the posterior calcaneus is seen which is felt to be within the distal Achilles tendon. No acute fracture or other abnormality is appreciated. Impression: 1. Findings as noted above. 2. Nothing acute is appreciated. Diagnostic code #2 This report was dictated in MDT
--- NOTE | 2020-01-22 15:50 | CR ---
Right ankle: 3 views of the right ankle were obtained. Comparison: No previous study. Soft tissue swelling is noted laterally. Ankle mortise is symmetric. Calcification is seen within the distal Achilles tendon. No acute fracture, dislocation or other bony and armand is seen. Impression: 1. Findings as noted. 2. No acute bony abnormality is seen. Diagnostic code #2 This report was dictated in MDT
== END 2020-01-22 16:35 | disposition home or self-care (01) ==
LOC: MW.ED 14:44
DX: S93.401A Sprain of unspecified ligament of right ankle, initial encounter (principal); Z88.1 Allergy status to other antibiotic agents; Z88.2 Allergy status to sulfonamides; Z98.84 Bariatric surgery status; Z90.49 Acquired absence of other specified parts of digestive tract; W01.0XXA Fall on same level from slipping, tripping and stumbling without subsequent striking against object, initial encounter
CPT/HCPCS: 73610-26-RT; 73610-RT; 73620-26-RT; 73620-RT; 99283; 99283-25